=== PATIENT | female | born 1955 | race Caucasian/White ===

== ENCOUNTER 2023-07-15 05:50 | Day surgery (SDC) | payer OTHER ==
[~2023-07-15] VITALS: Ht 170.2 cm; Wt 68.5 kg
[2023-07-15] MEDS ORDERED: CLINDAMYCIN 900 mg/50mL D5W 50 ML IV ONE (07:00)
[2023-07-15] MEDS ORDERED: fentaNYL CITRATE/PF 100 MCG/2 ML AMP ONE (07:23)
[2023-07-15] MEDS ORDERED: MIDAZOLAM HCL 2 MG/2 ML VIAL (VERSED) ONE (07:24)
[2023-07-15] MEDS ORDERED: ACETAMINOPHEN I.V. 1000 MG 100 ML IV ONE (07:24)
[2023-07-15] MEDS ORDERED: SEVOFLURANE 15 MIN GAS INH ONE (07:29)
[2023-07-15] MEDS ORDERED: NS 1000 ML IV.SOLN IV ONE (07:29)
[2023-07-15] MEDS ORDERED: DEXAMETHASONE SOD PHOSPHATE 4 MG/ML VIAL ONE (07:29)
[2023-07-15] MEDS ORDERED: LR 1,000 ML IV.SOLN IV ONE (07:29)
[2023-07-15] MEDS ORDERED: BUPIVACAINE /PF 0.25% 30 ML VIAL INJ ONE (07:29)
[2023-07-15] MEDS ORDERED: NS 100 ML BAG ONE (07:29)
[2023-07-15] MEDS ORDERED: ROCURONIUM BROMIDE 10 MG/ML (ZEMURON) ONE (07:29)
[2023-07-15] MEDS ORDERED: GLYCOPYRROLATE 0.2 MG/ML VIAL ONE (07:29)
[2023-07-15] MEDS ORDERED: ONDANSETRON HCL 4 MG/2 ML VIAL ONE (07:29)
[2023-07-15] MEDS ORDERED: NEOSTIGMINE METHYLSULFATE 1 MG/ML, 10 ML VIAL ONE (07:29)
[2023-07-15] MEDS ORDERED: SUCCINYLCHOLINE CHLORIDE 20 MG/ML(QUELICIN) ONE (07:29)
[2023-07-15] MEDS ORDERED: PROPOFOL 200MG/ 20ML VIAL (DIPRIVAN) IV ONE (07:29)
[2023-07-15] MEDS ORDERED: hydrALAZINE HCL 20 MG/ML VIAL IV PRN (08:15)
[2023-07-15] MEDS ORDERED: ONDANSETRON HCL 4 MG/2 ML VIAL IVP PRN (08:15)
[2023-07-15] MEDS ORDERED: HYDROmorphone 1 MG/ML INJ. CARTRIDGE IVP PRN ×3 (08:15)
[2023-07-15] MEDS ORDERED: NALOXONE HCL 0.4 MG/ML AMP (NARCAN) IVP PRN (08:15)
[2023-07-15] MEDS ORDERED: D5/0.45 NS 1,000 ML IV SCH (09:00)
[2023-07-15 09:13] VITALS: O2SAT 98
[2023-07-15 14:52] VITALS: BP_SYST 145; PULSE 64; RESP 20
== END 2023-07-15 11:58 | disposition home or self-care (01) ==
LOC: SDS 05:50 → SMU 05:50 → SDS 11:58
PROVIDERS: ATTEND Colon & Rectal Surgery
DX: K80.10 Calculus of gallbladder with chronic cholecystitis without obstruction (principal); K21.9 Gastro-esophageal reflux disease without esophagitis; Z88.0 Allergy status to penicillin; Z90.710 Acquired absence of both cervix and uterus; Z79.899 Other long term (current) drug therapy
CPT/HCPCS: 87081; 47562; 88304; J2710; S2900; J3490 ×3; J1100; J3465; J2405; J2704; J0330; J3010; Q9967; J7120; J7030; C1758; C1727; J0131